=== PATIENT | female | born 1990 | race Caucasian/White ===

== ENCOUNTER 2018-04-29 09:41 | Emergency (ER) | payer MEDICAID, OTHER ==
[2018-04-29 09:41] VITALS: BMI 31.1
[2018-04-29 10:11] VITALS: RESP 16
[2018-04-29] MEDS ORDERED: Sodium Chloride 0.9% 1,000 ML IV ONE (10:20)
--- NOTE | 2018-04-29 10:33 | C.PDOC ---
History Of Present Illness 27yo female, comes to ER reporting right sided adnexal pain since 3 am today. She reports associated nausea but denies any vomiting, fever, chills. No additional medical complaints. Patient is currently on her menstrual cycle. Time Seen by Provider: 04/29/18 10:15 Chief Complaint (Nursing): Abdominal Pain History Per: Patient History/Exam Limitations: no limitations Onset/Duration Of Symptoms: Hrs Current Symptoms Are (Timing): Still Present Quality Of Discomfort: "Pain" Associated Symptoms: Nausea. denies: Fever, Chills, Vomiting Additional History Per: Patient Abnormal Vaginal Bleeding: No Last Menstral Period: Currently on her menstrual period Past Medical History Reviewed: Historical Data, Nursing Documentation, Vital Signs Vital Signs: Last Vital Signs Temp 98.4 F 04/29/18 09:47 Pulse 84 04/29/18 09:47 Resp 16 04/29/18 09:47 BP 116/74 04/29/18 09:47 Pulse Ox 98 04/29/18 09:47 - Medical History PMH: Migraine Surgical History: No Surg Hx - [facility] Procedures DELIVERY OF PRODUCTS OF CONCEPTION, EXTERNAL APPROACH (12/22/15) Family History: States: Unknown Family Hx - Social History Hx Tobacco Use: No Hx Alcohol Use: No Hx Substance Use: No - Immunization History Hx Tetanus Toxoid Vaccination: Yes Hx Influenza Vaccination: No Hx Pneumococcal Vaccination: No Review Of Systems Except As Marked, All Systems Reviewed And Found Negative. Constitutional: Negative for: Fever, Chills Gastrointestinal: Positive for: Nausea, Abdominal Pain. Negative for: Vomiting Physical Exam - Physical Exam Appears: Non-toxic, No Acute Distress Skin: Normal Color Head: Atraumatic, Normacephalic Eye(s): bilateral: Normal Inspection Neck: Supple Chest: Symmetrical Cardiovascular: Rhythm Regular Respiratory: Normal Breath Sounds Gastrointestinal/Abdominal: Normal Exam, Soft Back: Normal Inspection Pelvic: Adnexal Tenderness (right adnexal tenderness) Extremity: Normal ROM, No Pedal Edema Neurological/Psych: Oriented x3 ED Course And Treatment - Laboratory Results Result Diagrams: 04/29/18 10:37 04/29/18 10:37 O2 Sat by Pulse Oximetry: 98 (RA) Pulse Ox Interpretation: Normal Progress Note: Labs and US transvaginal ordered. Patient given IV Fluids, zofran and toradol. Medical Decision Making Medical Decision Making: suspect ovarian cyst - no rlq ttp labs imaging pending pt reassesed. states all pain resolved. as us neg for cyst, offered CT to exclude appendciits. pt states all pain resolved and does not want CT scan. states she will return with worsening. Disposition - Disposition Referrals: [facility] [Outside] [facility] [Outside] Disposition: HOME/ ROUTINE Disposition Time: 12:00 Condition: STABLE Additional Instructions: return to er with worsening symptosm or concerns. you are declining a CT scan at this time. return to any er with any worsening symptoms or concerns. Instructions: Acute Abdomen (Belly Pain), Acute Pelvic Pain (DC) Forms: [employer] ([place]) - Clinical Impression Clinical Impression: Pelvic pain - Scribe Statement The provider has reviewed the documentation as recorded by the Eden Villafuerte Provider Attestation: All medical record entries made by the Eden were at my direction and personally dictated by me. I have reviewed the chart and agree that the record accurately reflects my personal performance of the history, physical exam, medical decision making, and the department course for this patient. I have also personally directed, reviewed, and agree with the discharge instructions and disposition.
[2018-04-29 10:43] LABS: BASO % 0.9 % (0.0-2.0); EOS # 0.1 K/uL (0.0-0.7); EOS % 1.7 % (0.0-4.0); HEMOGLOBIN 12.2 g/dL (11.0-16.0); LYMPH # 1.4 K/uL (1.0-4.3); LYMPH % 30.1 % (20.0-40.0); MEAN CELL VOLUME 80.8 fL (81.0-99.0); MEAN CORPUSCULAR HEMOGLOBIN 27.2 pg (27.0-31.0); MEAN CORPUSCULAR HGB CONC 33.7 g/dL (33.0-37.0); MEAN PLATELET VOLUME 9.8 fL (7.2-11.7); MONO # 0.7 K/uL (0.0-0.8); NEUT # 2.5 K/uL (1.8-7.0); NEUT % 52.3 % (50.0-75.0); NRBC % 0.1 % (0.0-2.0); RBC 4.49 Mil/uL (3.80-5.20); RED CELL DISTRIBUTION WIDTH 13.7 % (11.5-14.5); WHITE BLOOD COUNT 4.7 K/uL (4.8-10.8)
[2018-04-29 10:47] LABS: SQUAMOUS EPITHIAL 1 /hpf (0-5); URINE BILIRUBIN NEGATIVE (NEGATIVE); URINE BLOOD 2+ (NEGATIVE); URINE CLARITY Clear (Clear); URINE COLOR Yellow (YELLOW); URINE GLUCOSE (UA) NORMAL (Normal); URINE LEUKOCYTE ESTERASE NEG Leu/uL (Negative); URINE PROTEIN NEGATIVE (NEGATIVE); URINE UROBILINOGEN NORMAL mg/dL (0.2-1.0)
[2018-04-29 10:49] LABS: HCG,QUALITATIVE URINE NEGATIVE (NEGATIVE)
[2018-04-29 10:53] LABS: ALB/GLOB RATIO 1.2 (1.0-2.1); ALT/SGPT 42 U/L (9-52); AST/SGOT 21 U/L (14-36); BLOOD UREA NITROGEN 13 mg/dL (7-17); CALCIUM 9.1 mg/dl (8.6-10.4); GFR NON-AFRICAN AMERICAN > 60; LIPASE 56 U/L (23-300)
--- NOTE | 2018-04-29 12:34 | US ---
Date of service: 04/29/2018 PROCEDURE: Pelvic ultrasound 04/29/2018. HISTORY: right sided pain COMPARISON: Correlation made with prior study 07/08/2015 TECHNIQUE: Transabdominal/transvaginal sonographic evaluation of the pelvis performed. FINDINGS: Uterus anteverted measuring 8.6 x 5.0 x 5.1 cm. Endometrial stripe measures 6 mm. No free fluid seen in the cul de sac. Right ovary measures 3.4 x 2.0 x 2.6 cm and left ovary measures approximately 2.7 x 2.1 x 2.2 cm. Both ovaries exhibit arterial flow IMPRESSION: The unremarkable pelvic ultrasound the
[2018-04-29 12:53] VITALS: BP 102/61; PULSE 63; TEMP 98.7
[2018-04-29 13:14] VITALS: O2SAT 98
== END 2018-04-29 12:53 | disposition home or self-care (01) ==
LOC: C.ER 09:41
DX: R10.2 Pelvic and perineal pain (principal)
CPT/HCPCS: 76830; 76856; 80053; 81001; 83690; 84703; 85025; 96361; 96374; 99285; J1885; J7030